=== PATIENT | male | born 1960 | race Caucasian/White ===

== ENCOUNTER 2016-06-25 18:04 | Emergency (ER) | payer MEDICARE, OTHER ==
[2016-06-25 19:13] LABS: BASO % 0.4 % (0.2-1.2); EOS # 0.5 10_X3_uL (0.0-0.5); EOS % 8.8 % (0.8-7.0); GRAN # 2.6 10_X3_uL (1.8-5.4); GRAN % 45.9 % (34.0-67.9); HEMATOCRIT 45.2 % (40-51); HEMOGLOBIN 15.9 g/dL (13.7-17.5); LYMPH % 34.7 % (21.8-53.1); MEAN CORPUSCULAR HEMOGLOBIN 32.7 pg (27.0-33.0); MEAN CORPUSCULAR HGB CONC 35.2 g/dL (32.0-36.0); MEAN PLATELET VOLUME 9.7 fl (7.5-11.5); MONO # 0.6 10_X3_uL (0.3-0.8); MONO % 10.2 % (5.3-12.2); PLATELET COUNT 177 x10_3/uL (163-337); RED BLOOD COUNT 4.86 x10_6/uL (4.6-6.1); RED CELL DISTRIBUTION WIDTH 12.8 % (11.6-14.4); WHITE BLOOD COUNT 5.7 x10_3/uL (4.2-9.1)
[2016-06-25 19:24] LABS: CALCIUM 8.6 mg/dL (8.7-10.7); CREATININE 1.5 mg/dL (0.6-1.3); POTASSIUM 3.8 mmol/L (3.5-5.1)
== END 2016-06-25 20:09 | disposition home or self-care (01) ==
LOC: ER 18:04
PROVIDERS: Emergency Medicine
DX: R19.7 Diarrhea, unspecified (principal); I12.9 Hypertensive chronic kidney disease with stage 1 through stage 4 chronic kidney disease, or unspecified chronic kidney disease; N18.9 Chronic kidney disease, unspecified; I25.2 Old myocardial infarction; E11.22 Type 2 diabetes mellitus with diabetic chronic kidney disease; E78.5 Hyperlipidemia, unspecified; M10.9 Gout, unspecified; H40.9 Unspecified glaucoma; Z96.651 Presence of right artificial knee joint; F17.210 Nicotine dependence, cigarettes, uncomplicated; Z79.899 Other long term (current) drug therapy; Z79.82 Long term (current) use of aspirin; Z79.84 Long term (current) use of oral hypoglycemic drugs
CPT/HCPCS: 36415; 80048; 83630; 85025; 87045; 99283